=== PATIENT | male | born 1990 | race Caucasian/White ===

== ENCOUNTER 2017-03-17 00:51 | Emergency (ER) | payer OTHER ==
--- NOTE | 2017-03-17 01:25 | C.PDOC ---
History Of Present Illness 26 y/o male presents to ED with complaint of bilateral mid back pain for 1 day. Patient states he helped moving air conditioners yesterday. Otherwise, denies trauma, rash, headache, neck pain, nausea, vomiting, chest pain, SOB, or other complaints. Time Seen by Provider: 03/17/17 01:18 Chief Complaint (Nursing): Back Pain History Per: Patient History/Exam Limitations: no limitations Onset/Duration Of Symptoms: Days Current Symptoms Are (Timing): Still Present Quality Of Discomfort: "Pain" Previous Symptoms: None Associated Symptoms: None Recent travel outside of the [place]: No Past Medical History Reviewed: Historical Data, Nursing Documentation, Vital Signs Vital Signs: Last Vital Signs Temp 97.9 F 03/17/17 01:36 Pulse 66 03/17/17 01:36 Resp 16 03/17/17 01:36 BP 125/81 03/17/17 01:36 Pulse Ox 98 03/17/17 01:36 - Medical History PMH: No Chronic Diseases Family History: States: Unknown Family Hx - Social History Hx Alcohol Use: No Hx Substance Use: No - Immunization History Hx Tetanus Toxoid Vaccination: No Hx Influenza Vaccination: No Hx Pneumococcal Vaccination: No Review Of Systems Except As Marked, All Systems Reviewed And Found Negative. Constitutional: Negative for: Fever, Chills Cardiovascular: Negative for: Chest Pain Respiratory: Negative for: Cough, Shortness of Breath, Wheezing Gastrointestinal: Negative for: Nausea, Vomiting, Abdominal Pain Musculoskeletal: Positive for: Back Pain (bilateral, mid back). Negative for: Neck Pain Skin: Negative for: Rash Neurological: Negative for: Weakness, Numbness, Headache, Dizziness Physical Exam - Physical Exam Appears: Non-toxic, No Acute Distress Skin: Normal Color, Warm, Dry Head: Atraumatic, Normacephalic Oral Mucosa: Moist Chest: Symmetrical Cardiovascular: Rhythm Regular Respiratory: Normal Breath Sounds, No Rales, No Rhonchi, No Wheezing Gastrointestinal/Abdominal: Soft, No Tenderness, No Guarding, No Rebound Back: No CVA Tenderness, No Vertebral Tenderness, Paraspinal Tenderness ( bilateral latissimus dorsi tenderness ) Extremity: Normal ROM, Capillary Refill (< 2 sec. ) Neurological/Psych: Oriented x3, Normal Speech, Normal Cognition Gait: Steady ED Course And Treatment O2 Sat by Pulse Oximetry: 98 (RA) Pulse Ox Interpretation: Normal Progress Note: On reassessment, patient is resting comfortably, and is in no acute distress. Patient instructed to follow up with clinic/PMD within 1-2 days. Medical Decision Making Medical Decision Making: thoracic posterior strain (not spinal) lifting airconditioners yesterday. LOW susp of lung/spine injury NSAIDS and ice therapy educated. Disposition Doctor Will See Patient In The: Office Counseled Patient/Family Regarding: Studies Performed, Diagnosis - Disposition Referrals: Orville Cedeno MD [Medical Doctor] - Disposition: HOME/ ROUTINE Disposition Time: 01:25 Condition: GOOD Additional Instructions: ice packs 1/2 hour per hour, nothing hot. Motrin 600 mg every 6 hours as needed pepcid 20 mg @ night to prevent stomach irritation from the Motrin No heavy lifting x 1 week. Instructions: Thoracic Back Strain (ED) Forms: Work Excuse - Clinical Impression Clinical Impression: Thoracic back sprain - Scribe Statement The provider has reviewed the documentation as recorded by the Adrián Dial Provider Scribe Attestation: All medical record entries made by the Adrián were at my direction and personally dictated by me. I have reviewed the chart and agree that the record accurately reflects my personal performance of the history, physical exam, medical decision making, and the department course for this patient. I have also personally directed, reviewed, and agree with the discharge instructions and disposition.
[2017-03-17 01:36] VITALS: BP 125/81; PULSE 66; RESP 16; TEMP 97.9; O2SAT 98
== END 2017-03-17 01:40 | disposition home or self-care (01) ==
LOC: C.ER 00:51
DX: S23.3XXA Sprain of ligaments of thoracic spine, initial encounter (principal); X50.9XXA Other and unspecified overexertion or strenuous movements or postures, initial encounter